=== PATIENT | female | born 1995 | race Caucasian/White ===

== ENCOUNTER 2021-03-18 18:26 | Emergency (ER) | payer OTHER, SELFPAY ==
[2021-03-18 19:08] VITALS: BP 140/82; PULSE 96; RESP 14; TEMP 37.2; O2SAT 100; BMI 24.7
[2021-03-18 19:33] LABS: Add Manual Diff / Slide Review NO; Basophils Absolute Auto 0 /uL (0-100); Basophils Percent Auto 0.6 % (0-2); Eosinophils Absolute Auto 100 /uL (0-450); Eosinophils Percent Auto 0.7 % (2-4); Hematocrit 38.7 % (36-46); Hemoglobin 13.3 g/dL (12.0-16.0); Lymphocytes Absolute Auto 2500 /uL (1100-4500); Lymphocytes Percent Auto 33.2 % (25-40); Mean Corpuscular HGB Conc 34.5 % (30-36); Mean Corpuscular Hemoglobin 30.1 PG (26-34); Mean Corpuscular Volume 87.3 fL (80-100); Monocytes Absolute Auto 500 /uL (0-900); Monocytes Percent Auto 6.5 % (3-14); Neutrophils Absolute Auto 4500 /uL (1500-7000); Platelet Count 235 X10^3/uL (150-400); Red Blood Cell Count 4.43 X10^6/uL (4.0-5.2); Red Cell Distribution Width 11.9 % (11.6-14.8); White Blood Cell Count 7.6 X10^3/uL (4.5-11.0)
[2021-03-18 19:50] LABS: Alanine Aminotransferase 26 IU/L (<35); Albumin 4.3 g/dL (3.5-5.0); Albumin Globulin Ratio 1.5 (1.0-2.8); Alkaline Phosphatase 80 U/L (38-126); Aspartate Aminotransferase 32 IU/L (14-36); BUN Creatinine Ratio 6.2 (6-22); Bilirubin Total 0.5 mg/dL (0.2-1.3); Blood Urea Nitrogen 4 mg/dL (7-17); Calcium 9.2 mg/dL (8.4-10.2); Carbon Dioxide 30 mmol/L (22-32); Chloride 105 mmol/L (98-107); Estimated Glomerular Filt Rate > 60.0 mL/min (>60); Globulin 2.8 g/dL (1.7-4.1); Glucose 97 mg/dL (70-100); HEMOLYSIS < 15 (0-50); Lipase 56 U/L (23-300); Sodium 139 mmol/L (137-145); Total Protein 7.1 g/dL (6.3-8.2)
--- NOTE | 2021-03-18 21:41 | DI.CT.S_ITS ---
PROCEDURE: CT ABDOMEN PELVIS W CON INDICATIONS: lower abdominal pain TECHNIQUE: After the administration of oral and IV contrast, axial sections were acquired from the lung bases to the pubic symphysis. Coronal and sagittal reformats were performed. For radiation dose reduction, the following was used: automated exposure control, adjustment of mA and/or kV according to patient size. COMPARISON: None. FINDINGS: Image quality: Excellent. Lung bases: Unremarkable. Heart: No significant findings. ABDOMEN: Liver: No masses, mild steatosis. Gallbladder: Normal wall thickness. Biliary ducts: Nondilated. Pancreas: Normal. Spleen: Normal size. Two splenules near the hilum. Adrenal Glands: No nodules. Kidneys and Ureters: Normal enhancement. No hydronephrosis or hydroureter. Nonobstructing punctate left lower pole intrarenal calculus. Stomach and Bowel: Stomach, small bowel loops, and colon are unremarkable. Normal appendix. Peritoneum: No abnormal intraperitoneal fluid. No free air. Ventral Wall: No hernia. Abdominal Nodes: There are several mildly prominent mesenteric lymph nodes in the right lower quadrant. Occasional nonenlarged retroperitoneal and other mesenteric lymph nodes. Vessels: Aorta and inferior vena cava are normal in size. PELVIS: Pelvic Organs: Uterus and ovaries appear normal. Tampon in the vaginal canal. Bladder: Normal bladder wall thickness. Pelvic Nodes: No enlarged lymph nodes. Miscellaneous: No inguinal hernias are seen. Bones: Unremarkable. IMPRESSION: 1. Normal appendix. 2. Mildly prominent right lower quadrant mesenteric lymph nodes consistent with adenitis. This may be reactive to gastroenteritis. 3. Nonobstructing punctate left lower pole intrarenal calculus. Dictated by: Tess Perry M.D. on 03/18/2021 at 22:49 Approved by: Tess Perry M.D. on 03/18/2021 at 22:54
[2021-03-18] MEDS: HYDROMORPHONE 1 MG INJ IV ×2 (21:50→23:41)
[2021-03-18] MEDS: ONDANSETRON 4 MG/2 ML INJ (21:50)
--- NOTE | 2021-03-18 22:04 | ED_ITS ---
HPI - Abdominal Pain General Chief Complaint: Abdominal Pain Stated Complaint: HAVING ABDOMINAL PAIN Time Seen by Provider: 03/18/21 21:40 Source: patient Mode of arrival: Ambulatory History of Present Illness HPI narrative: Patient is a 25-year-old female suffers from endometriosis. She has had multiple surgeries work up has been ongoing for the last 10 years. Today she presents with increasing pain which is worse and different than her normal pain. She is on her 2nd menstrual cycle for the month. Earlier today she said she was going through 3 adult diapers every 30 minutes however it has slowed down significantly. She denies any fever or chills. She has significant lower pelvic pain. Constantly nauseous no vomiting. She denies any vaginal discharge. Related Data Previous Rx's Medication Instructions Recorded oxycodone-acetaminophen 5 mg-325 1 tab PO Q6H PRN #10 tab 03/18/21 mg tablet (Percocet) Allergies Allergy/AdvReac Type Severity Reaction Status Date / Time acetaminophen [From Vicodin] Allergy Verified 03/18/21 19:08 hydrocodone [From Vicodin] Allergy Verified 03/18/21 19:08 Review of Systems Review of Systems Narrative: GENERAL: Denies chills, fatigue, malaise, fever, sweats, travel HEENT: Denies sinus pain, ear pain, sore throat, difficulty swallowing, neck pain RESPIRATORY: Denies dyspnea, cough, wheezing, hemoptysis, sputum. CARDIOVASCULAR: Denies chest pain, palpitations, orthopnea, edema GASTROINTESTINAL: Denies nausea, vomiting, abdominal pain, diarrhea, constipation, melena. : Denies dysuria, frequency, incontinence, hematuria, urinary retention, flank pain. 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 12 point review of systems is negative except for those stated above and HPI Patient History Social History Smoking Status: Unknown if ever smoked Smoking Status: Unknown if ever smoked alcohol intake frequency: holidays/special occasions only Substance Use Type: does not use Exam Initial Vital Signs Initial Vital Signs: Vital Signs Temperature 98.9 F 03/18/21 19:08 Pulse Rate 96 H 03/18/21 19:08 Respiratory Rate 14 03/18/21 19:08 Blood Pressure 140/82 03/18/21 19:08 Pulse Oximetry 100 03/18/21 19:08 GENERAL: Alert 25-year-old female appears mildly uncomfortable in [no acute] distress. HEENT: Head atraumatic,EOMI, pupils reactive, face symmetric, [moist] mucous membranes CARDIOVASCULAR: Regular rate and rhythm without murmurs, rubs or gallops. RESPIRATORY: Breath sounds equal bilaterally, no wheezes rales or rhonchi. ABDOMEN: Soft, nontender. Normoactive bowel sounds all 4 quadrants. No guarding or rebound. PELVIC: Normal external genitalia, painful insertion of speculum she does have bleeding but no significant blood clots. Tenderness on manual exam no significant right versus left adnexal tenderness no cervical tenderness, no abnormal vaginal discharge EXTREMITIES: Normal range of motion, no clubbing or edema. Neurovascularly intact NEUROLOGICAL: Alert and oriented x4.Normal gait and speech. SKIN: Warm, dry, no laceration, no petechiae, no rashes or lesions. Course Orders Ordered: ED Orders 03/18/21 19:20 Complete Blood Count AUTO DIFF Stat Comprehensive Metabolic Panel Stat Lipase Stat 03/18/21 21:41 CT abdomen pelvis w con Stat Discontinued Medications Hydromorphone HCl (Hydromorphone 1 Mg Inj) 1 mg IV NOW ONE Stop: 03/18/21 21:42 Last Admin: 03/18/21 21:50 Dose: 1 mg Documented by: KATHERINE Hydromorphone HCl (Hydromorphone 0.5 Mg Inj) 0.5 mg IV NOW ONE Stop: 03/18/21 22:42 Last Admin: 03/18/21 22:53 Dose: 0.5 mg Documented by: KATHERINE Hydromorphone HCl (Hydromorphone 1 Mg Inj) 1 mg IV NOW ONE Stop: 03/18/21 23:35 Last Admin: 03/18/21 23:41 Dose: 1 mg Documented by: KATHERINE Ketorolac Tromethamine (Ketorolac 30 Mg/Ml Vial) 15 mg IV NOW ONE Stop: 03/18/21 22:42 Last Admin: 03/18/21 22:52 Dose: 15 mg Documented by: KATHERINE Oxycodone/Acetaminophen (Oxycodone/Apap 5/325 Prepack) 1 bottle MISC SEEINSTR ONE Stop: 03/18/21 23:30 Last Admin: 03/18/21 23:41 Dose: 1 bottle Documented by: KATHERINE Vital Signs Vital signs: Vital Signs - 8 hr 03/18/21 23:45 Temperature 97.6 F Pulse Rate 107 H Respiratory Rate 18 Blood Pressure 116/72 Pulse Oximetry 97 MDM - Abdominal Pain Lab Data Result diagrams: 03/18/21 19:20 03/18/21 19:20 Labs: Lab Results 03/18/21 03/18/21 Range/Units 19:20 19:20 WBC 7.6 (4.5-11.0) X10^3/uL RBC 4.43 (4.0-5.2) X10^6/uL Hgb 13.3 (12.0-16.0) g/dL Hct 38.7 (36-46) % MCV 87.3 (80-100) fL MCH 30.1 (26-34) PG MCHC 34.5 (30-36) % RDW 11.9 (11.6-14.8) % Plt Count 235 (150-400) X10^3/uL Neut % (Auto) 59.0 (50-75) % Lymph % (Auto) 33.2 (25-40) % [place] % (Auto) 6.5 (3-14) % Eos % (Auto) 0.7 L (2-4) % Baso % (Auto) 0.6 (0-2) % Neut # (Auto) 4500 (0124-4179) /uL Lymph # (Auto) 2500 (1745-9795) /uL [place] # (Auto) 500 (0-900) /uL Eos # (Auto) 100 (0-450) /uL Baso # (Auto) 0 (0-100) /uL Sodium 139 (137-145) mmol/L Potassium 4.0 (3.4-5.1) mmol/L Chloride 105 (98-107) mmol/L Carbon Dioxide 30 (22-32) mmol/L BUN 4 L (7-17) mg/dL Creatinine 0.65 (0.52-1.04) mg/dL Estimated GFR > 60.0 (>60) mL/min BUN/Creatinine Ratio 6.2 (6-22) Glucose 97 (70-100) mg/dL Calcium 9.2 (8.4-10.2) mg/dL Total Bilirubin 0.5 (0.2-1.3) mg/dL AST 32 (14-36) IU/L ALT 26 (<35) IU/L Alkaline Phosphatase 80 (38-126) U/L Total Protein 7.1 (6.3-8.2) g/dL Albumin 4.3 (3.5-5.0) g/dL Globulin 2.8 (1.7-4.1) g/dL Albumin/Globulin Ratio 1.5 (1.0-2.8) Lipase 56 (23-300) U/L Point of care testing: Point of Care Testing Test Results Negative Urine Dip Bedside Urine Glucose Negative Bedside Urine Bilirubin - Negative Bedside Urine Ketone - Negative Urine Specific [place] 1.015 Bedside Urine Occult Blood + Bedside Urine pH 6.0 Bedside Urine Protein - Negative Bedside Urine Urobilinogen - Negative Bedside Urine Nitrite - Negative Bedside Urine Leukocytes - Negative Esterase Imaging Data CT scan - abdomen/pelvis: Radiologist's Impression: PROCEDURE:? CT ABDOMEN PELVIS W CON ? INDICATIONS:? lower abdominal pain ? TECHNIQUE:? After the administration of oral and IV contrast, axial sections were acquired from the lung bases to the pubic symphysis.? Coronal and sagittal reformats were performed.? For radiation dose reduction, the following was used:? automated exposure control, adjustment of mA and/or kV according to patient size. ? COMPARISON:? None. ? FINDINGS:? Image quality:? Excellent.? ? Lung bases:? Unremarkable.? ? Heart:? No significant findings. ? ? ABDOMEN: Liver:? No masses, mild steatosis. Gallbladder:? Normal wall thickness. Biliary ducts:? Nondilated. Pancreas:? Normal. Spleen:? Normal size.? Two splenules near the hilum. Adrenal Glands:? No nodules. Kidneys and Ureters:? Normal enhancement.? No hydronephrosis or hydroureter.? Nonobstructing punctate left lower pole intrarenal calculus. ? Stomach and Bowel:? Stomach, small bowel loops, and colon are unremarkable.? Nor mal appendix. Peritoneum:? No abnormal intraperitoneal fluid.? No free air.? ? Ventral Wall: ? No hernia.? Abdominal Nodes:? There are several mildly prominent mesenteric lymph nodes in the right lower quadrant.? Occasional nonenlarged retroperitoneal and other mesenteric lymph nodes. ? Vessels:? Aorta and inferior vena cava are normal in size.? ? PELVIS: Pelvic Organs:? Uterus and ovaries appear normal.? Tampon in the vaginal canal. Bladder:? Normal bladder wall thickness. Pelvic Nodes: No enlarged lymph nodes.? Miscellaneous: No inguinal hernias are seen. ? ? ? Bones:? Unremarkable.? IMPRESSION:? 1. Normal appendix. 2. Mildly prominent right lower quadrant mesenteric lymph nodes consistent with adenitis. ?This may be reactive to gastroenteritis. 3. Nonobstructing punctate left lower pole intrarenal calculus.? ? ? Dictated by: Tess Perry M.D. on 03/18/2021 at 22:49 ? ? [facility] Narrative Medical decision making narrative: Patient presents with worsening abdominal pain and excessive vaginal bleeding. A pelvic exam was quite tender but no excessive amount of blood found. Blood work is overall reassuring CT scan does show mesenteric adenitis which may explain her increased pain. She is given his Toradol and Dilaudid in the emergency department which does seem to help. She states that she has previo usly taken Percocet in the past for pain control at home. At this time no indication for antibiotics she is afebrile without leukocytosis Discharge Plan Departure Patient Disposition: Home Clinical Impression: Acute mesenteric adenitis, Endometriosis Instructions: DI for Endometriosis, DI for Mesenteric Adenitis-Adult Activity Restrictions/Additional Instructions: *You have been diagnosed with endometriosis and mesenteric adenitis *What to do: You have inflamed lymph nodes in your abdomen shows likely causing increased pain. No need for antibiotics at this time. *Continue to take medications as directed Motrin 800 mg every 8 hours if needed for [id number] pain Percocet 1 tablet every 6 hours if needed for severe pain *Follow up with your primary care provider in 2-3 days *Return to ER if you should have increasing pain, fever, vaginal bleeding more than 1-2 super pads an hour or any new, worsening or concerning symptoms CONTROLLED SUBSTANCE DISCHARGE (Narcotoic/benzodiazepine/Flexeril/Phenergan) 1. You have been prescribed narcotic medications, it does have acetamino phen/Tylenol/paracetamol in it, DO NOT TAKE MORE THAN 4,00mg in 24 hours of Tylenol. TRAMADOL DOES NOT CONTAIN TYLENOL 2. Please understand that we cannot provide further refills of narcotics, efrain zodiazepines or controlled substances through the ED and her pain management will need to be through your provider. 3. While on these medications you cannot drive or operate heavy machinery. 4. You cannot sign legal documents or perform any duties such as this. 5. As long as you're taking opiate pain medications he should also be taking a stool softener such as Colace, Dulcolax, MiraLAX or prune juice, to help avoid constipation. Prescriptions: New oxycodone-acetaminophen [Percocet] 5-325 mg tablet 1 tab PO Q6H PRN (Reason: pain) Qty: 10 0RF
[2021-03-18] MEDS: KETOROLAC 30 MG/ML VIAL 15 MG IV (22:52)
[2021-03-18] MEDS: HYDROMORPHONE 0.5 MG INJ IV (22:53)
[2021-03-18] MEDS: OXYCODONE/APAP 5/325 PREPACK 1 BOTTLE MISC (23:41)
[2021-03-18 23:45] VITALS: BP 116/72; PULSE 107; RESP 18; TEMP 36.4; O2SAT 97
== END 2021-03-18 23:55 | disposition home or self-care (01) ==
PROVIDERS: Emergency Provider Emergency Medicine
DX: I88.0 Nonspecific mesenteric lymphadenitis (principal); N80.9 Endometriosis, unspecified; Z88.5 Allergy status to narcotic agent; Z88.6 Allergy status to analgesic agent
CPT/HCPCS: 36415; 74177; 80053; 81003; 81025; 83690; 85025; 96374; 96375; 96376; 99284; J1170; J1885; J2405; Q9967

== ENCOUNTER → 2022-10-02 09:33 | Outpatient (CLI) | payer OTHER, MEDICAID, SELFPAY ==
--- NOTE | 2022-10-02 | DI.ECHO.S_ITS ---
[place] +---------+ [facility] +---------+ : : [address] : : : : [id number] : : : : Phone: [phone] Echocardiogram Report + + :Name: RADHA MCDERMOTT Study Date: 10/02/2022 Height: 62 in : :[facility] ReadingLocation: Weight: 170 lb : : Gender: Female BSA: 1.8 m2 : :: 1995 Age: 26 yrs BP: 133/76 mmHg: :Reason For Study: Localized Edema : :Ordering Physician: Preston, : :Erik Performed By: Rita Mays : :Referring: ERIK LOPEZ : + + Interpretation Summary The left ventricle is normal in size and wall thickness. Left ventricular systolic function is normal. The ejection fraction is estimated to be 55-60%. The right ventricle is normal size. The right ventricular systolic function is normal. No significant valvular pathology seen. The IVC is of normal diameter and collapses greater than 50% with a sniff. This suggests a low right atrial pressure of 3 mm Hg. Procedure: A two-dimensional transthoracic echocardiogram with color flow and Doppler was performed. The study quality was technically adequate. There is no prior echocardiogram noted for this patient. The patient was in normal sinus rhythm during the exam. Left Ventricle: The left ventricle is normal in size and wall thickness. There is no thrombus. The ejection fraction is estimated to be 55-60%. Left ventricular systolic function is normal. There are no focal wall motion abnormalities. Diastolic parameters suggest probable normal left ventricular diastolic function and normal filling pressures. Right Ventricle: The right ventricle is normal size. The right ventricular systolic function is normal. Atria: The left atrial size is normal. Right atrial size is normal. There is no Doppler evidence for an interatrial shunt. Mitral Valve: The mitral valve is normal. There is no mitral valve stenosis. There is trace mitral regurgitation. Aortic Valve: The aortic valve is trileaflet. The aortic valve opens well. There is no aortic valve stenosis. No aortic regurgitation is present. Tricuspid Valve: The tricuspid valve is normal. There is no tricuspid stenosis. There is trace tricuspid regurgitation. The right ventricular systolic pressure is estimated to be at least 19 mmHg based on an estimated right atrial pressure of 3 mm Hg. Pulmonic Valve: The pulmonic valve leaflets are thin and pliable; valve motion is normal. There is no pulmonic valvular stenosis. There is trace pulmonic regurgitation. Great Vessels: The aortic root is normal size. The ascending aorta is normal in size. The pulmonary artery is normal size. The IVC is of normal diameter and collapses greater than 50% with a sniff. This suggests a low right atrial pressure of 3 mm Hg. Pericardium/ Pleura There is no pericardial effusion. There is a moderately large left-sided pleural effusion. MMode/2D Measurements & Calculations LVIDd: 4.6 cm LVOT diam: 1.8 cm LVIDs: 3.1 cm Ao root diam: 2.6 cm FS: 32.6 % asc Aorta Diam: 2.3 cm EPSS: 0.60 cm IVSd: 0.80 cm LVPWd: 1.0 cm LV anderson. diameter/BSA (cm/m^2): 2.6 LV sys. diameter/BSA (cm/m^2): 1.7 LA A2 area: 15.4 cm2 RA long axis: 4.3 cm LA A4 area: 13.4 cm2 RA area: 9.2 cm2 LA length (vol): 4.8 cm RA vol: 16.8 ml LA vol: 36.3 ml RA : 9.4 ml/m2 LA vol index: 20.4 ml/m2 RVD1 (basal): 2.9 cm LVLs ap4: 5.4 cm LVLd ap2: 6.8 cm TAPSE_phl: 2.5 cm LVLs ap2: 5.7 cm Doppler Measurements & Calculations Ao V2 max: 154.0 cm/sec LVOT Max Levi: 98.2 cm/sec Ao V2 mean: 109.0 cm/sec LV V1 max P.9 mmHg Ao max P.0 mmHg LV V1 VTI: 21.9 cm Ao mean P.0 mmHg JENNIFER(I,D): 1.6 cm2 Ao V2 VTI: 33.8 cm JENNIFER(V,D): 1.6 cm2 sev ratio: 0.65 JENNIFER indexed to BSA (cm^2/m^2): 0.92 MV E max levi: 79.8 cm/sec TR max levi: 200.5 cm/sec MV A max levi: 57.9 cm/sec TR max P.3 mmHg MV E/A: 1.4 PA V2 max: 135.0 cm/sec Med Peak E' Levi: 11.7 cm/sec PA V2 mean: 86.9 cm/sec E/E' med: 6.8 PA mean P.0 mmHg Lat Peak E' Levi: 15.2 cm/sec PA pr(Accel): 26.8 mmHg E/E' lat: 5.3 E/e' average: 6.0 MV dec time: 0.14 sec SV(LVOT): 55.7 ml AV VR_phl: 0.64 JENNIFER(VTI)/BSA_phl: 0.93 MV P1/2t-pr_phl: 41.0 msec Reading Physician:01:13 PM
== END ==
PROVIDERS: PCP Physician Assistant Medical; Referring Provider Physician Assistant Medical; Visit Provider Physician Assistant Medical
DX: J90 Pleural effusion, not elsewhere classified (principal); R60.0 Localized edema
CPT/HCPCS: 93306